=== PATIENT | male | born 1990 | race African-American/Black ===

== ENCOUNTER 2016-08-22 08:32 | Emergency (ER) | payer OTHER ==
[~2016-08-22] VITALS: Ht 185.4 cm; Wt 81.6 kg
--- NOTE | 2016-08-22 08:38 | NUR ---
BB SELF FOR ASTHMA EXACERBATION SINCE THIS AM. AWAITING MD ORDER
--- NOTE | 2016-08-22 08:41 | NUR ---
RT AT BEDSIDE
[2016-08-22] MEDS ORDERED: ALBUTEROL FS 2.5 MG/3 ML VIAL.NEB ONE (08:44)
[2016-08-22] MEDS ORDERED: IPRATROPIUM NEB FS 0.5 MG/2.5 ML AMPUL.NEB ONE (08:44)
[2016-08-22] MEDS ORDERED: predniSONE 20 MG TABLET ONE (08:47)
[2016-08-22] MEDS ORDERED: diphenhydrAMINE HCL ELIX 25 MG/10 ML UDC ONE (08:47)
[2016-08-22] MEDS ORDERED: ALBUTEROL FS 2.5 MG/3 ML VIAL.NEB CONTNEB ONE (09:00)
[2016-08-22] MEDS ORDERED: DIPHENHYDRAMINE HCL 12.5 MG/5 ML UDC PO ONE (09:00)
[2016-08-22] MEDS ORDERED: predniSONE 20 MG TABLET PO ONE (09:00)
[2016-08-22] MEDS ORDERED: IPRATROPIUM NEB FS 0.5 MG/2.5 ML AMPUL.NEB NEB ONE (09:00)
--- NOTE | 2016-08-22 09:14 | NUR ---
Patient discharged to home in stable condition. Written and verbal after care instructions given. Patient verbalizes understanding of instruction.
[2016-08-22 09:15] VITALS: BP 122/68
== END 2016-08-22 09:29 | disposition home or self-care (01) ==
LOC: ER 08:32
DX: J45.909 Unspecified asthma, uncomplicated (principal)
CPT/HCPCS: A4606; Q0163; Z7610